=== PATIENT | male | born 1960 | race Caucasian/White ===

== ENCOUNTER 2017-07-05 06:29 | Day surgery (SDC) | payer OTHER ==
--- NOTE | 2017-06-29 18:49 | HP ---
AMENDED REPORT NOW INCLUDES COSIGNER DESIGNATION - ESIGNED BEFORE ADJUSTMENT HISTORY AND PHYSICAL: DATE OF SURGERY: 07/05/17 DATE OF OFFICE VISIT: 06/29/17 SURGEON: Dr. Milner * (DICTATED BY ANDREZ FORD) PROCEDURE: Right hand carpometacarpal arthroplasty. CHIEF COMPLAINT: Right hand and wrist pain. 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 He does a lot of repetitive motions and has a lot of load across his wrist. 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 Wrist x-rays also showed marked ulnar positive variation with ulnar impaction syndrome. The patient is very symptomatic with both of these problems. At his last appointment, we discussed surgical procedures to adjust each of these problems separately and he wanted to pursue with the surgical treatment. PAST MEDICAL HISTORY: Hypertension Hyperlipidemia He denies any history of AK or DVT, PE. PAST SURGICAL HISTORY: Two neck surgeries. MEDICATIONS: 1. Simvastatin. 2. Carvedilol 25 mg. 3. Omeprazole 40 mg. 4. Losartan 100 mg. 5. Fenofibrate 160 mg. ALLERGIES: No known drug allergies. FAMILY MEDICAL HISTORY: He denies any known family history including strokes, AK, DVT, or diabetes. SOCIAL HISTORY: The patient is a current 1 pack per day smoker with a 30-year history. He does occasionally drink alcohol and he denies any use of illicit drugs. REVIEW OF SYSTEMS: General: Negative for fevers, chills, or night sweats. He has not had problems with anesthesia in the past. HEENT: Negative for headache, lightheadedness, or fainting. Cardiothoracic: Negative for hypertension. Negative for chest pain or palpitations. Pulmonary: Negative for shortness of breath, chronic cough, COPD. GI: Negative for nausea, vomiting, diarrhea, or constipation. He denies a history of GERD. : Negative for urinary frequency, urinary urgency, or history of kidney problems. Musculoskeletal: Positive for the current complaint as described in the HPI. Positive for chronic back pain. Neuro: Negative for paresthesias, numbness, history of seizures, or stroke. Endocrine: Negative for diabetes or thyroid problems. Hematologic: Negative for easy bruising, anemia, excessive bleeding, history of DVT or PE. ID: Negative for MRSA, hepatitis C, and HIV. PHYSICAL EXAMINATION VITAL SIGNS: Height 66 inches, weight 225 pounds, pulse 73, blood pressure 148/ 95, respirations 16, BMI 36.3. GENERAL: Francois is a healthy-appearing, well-developed, well-nourished 56-year- old man who appears his stated age, in no apparent distress. HEENT: Normocephalic, atraumatic. NECK: He has a supple neck. No palpable lymph nodes. Thyroid is smooth and nontender. PULMONARY: Lungs clear to auscultation bilaterally with no wheezes, rhonchi, or rales. CARDIO: Regular rate and rhythm. No murmurs, rubs, or gallops appreciated. No pedal edema. ABDOMEN: Soft, nontender. He does have an umbilical hernia. NEUROLOGIC: Alert and oriented x3. Cranial nerves II through XII grossly intact. Sensation is intact to light touch. MUSCULOSKELETAL: Bilateral upper extremities, he has a prominence of the distal ulna on the right, but not on the left. He has hyperextension deformity of the right thumb MP joint, but is not present on the left. He can make a fist. His wrist motion on the right is limited with flexion and extension by pain as compared to the left and his supination is limited. His neurovascular function is intact. Skin is intact. DIAGNOSTIC STUDIES: X-rays previously performed at [facility] discussed within the HPI. IMPRESSION: Carpometacarpal arthritis on the right due to years of work as a brant. He also has ulnar impaction syndrome of the right wrist. PLAN: The patient is scheduled to undergo right hand carpometacarpal arthroplasty on 07/05/[address] Milner. He will return to the office in 10 to 14 days postop for followup and suture removal. A prescription for Chelsea was sent to his pharmacy today, on 06/29/17 and was e-scribed today. I-STOP was verified prior to prescription transmission. ANDREZ FORD [id number]/[facility] #: [id number] [place]
[~2017-07-05 06:29] MED LIST: Buffered Lidocaine 0.9% SYRIN* 5 ML/SYR SYRINGE INTRADERM ONE; DiMENhydriNATE IV* 50 MG/ML VIAL IV PUSH PRN; Famotidine IV* 10 MG/ML 2 ML (20 mg) IV ONE; Famotidine IV* 10 MG/ML 2 ML (20 mg) ONE; Morphine INJ* 2 MG/ML 1 ML CARPUJECT IV PRN; PROCHLORPERAZINE INJ 5 MG/ML 2 ML VIAL IV PRN; Scopolamine 1.5 mg* PATCH TRANSDERM PRN; fentaNYL* 50 MCG/ML 2 ML VIAL (100 MCG VIAL) IV PRN; oxyCODONE/Acetamin 5/325 MG* TAB PO PRN
[2017-07-05] MEDS ORDERED: ceFAZolin 2 GM PREMIX (*) 2 GM/50 ML BAG IVPB ONE (06:38)
[2017-07-05] MEDS ORDERED: Midazolam* 1 MG/ML 5 ML VIAL (5 MG) ONE (07:20)
[2017-07-05] MEDS ORDERED: fentaNYL* 50 MCG/ML 2 ML VIAL (100 MCG VIAL) ONE ×2 (07:20→07:48)
[2017-07-05] MEDS ORDERED: KETAMINE HCL* 50 MG/ML 10 ML VIAL ONE (07:20)
[2017-07-05] MEDS ORDERED: Bupivacaine 0.5% SDV PF* 30 ML VIAL ONE (07:26)
[2017-07-05] MEDS ORDERED: Ondansetron INJ* 2 MG/ML VIAL ONE (07:49)
[2017-07-05] MEDS ORDERED: Dexamethasone IV* 4 MG/ML 1 ML (4 MG) ONE (07:49)
[2017-07-05] MEDS ORDERED: Lidocaine 2% PF * 5 ML VIAL ONE (07:49)
[2017-07-05] MEDS ORDERED: Ketorolac INJ* 30 MG/ML 1 ML VIAL ONE (07:49)
[2017-07-05] MEDS ORDERED: Propofol* 10 MG/ML 20 ML BTL IV PUSH ONE (07:49)
[2017-07-05] MEDS ORDERED: Metoprolol Tartrate IV* 1 MG/ML 5 ML VIAL ONE (07:56)
[2017-07-05 09:17] VITALS: BP 133/76
--- NOTE | 2017-07-06 01:08 | OP ---
DATE OF OPERATION: 07/05/17 [facility] DATE OF : 64 SURGEON: Ai Milner MD SPRAYER OPERATOR: ANDREZ Ghosh ANESTHESIOLOGIST: Jason Fountain MD ANESTHESIA: General. PRE-OP DIAGNOSIS: Right thumb carpometacarpal arthritis. POST-OP DIAGNOSIS: Right thumb carpometacarpal arthritis. OPERATIVE PROCEDURE: Right thumb carpometacarpal arthroplasty. ESTIMATED BLOOD LOSS: Zero. TOURNIQUET TIME: About 30 minutes. INDICATION FOR PROCEDURE: Francois is a 56-year-old man who has pain at the base of his right thumb from heavy overuse and work over many years. He has severe degenerative arthritis at the CMC joint as seen on x-ray. He presents for right thumb CMC arthroplasty. DESCRIPTION OF PROCEDURE: The patient was brought to the operating room, was given a general anesthetic and placed in the supine position on the operating table with the tourniquet around his right upper arm. The skin of his right hand and forearm was prepped and draped in the usual sterile fashion. The hand and forearm were exsanguinated and tourniquet elevated to 250 mmHg. An S- shaped incision was made centered over the thumb CMC joint. We dissected bluntly through the subcutaneous tissue down to the CMC joint capsule. The APL and EPB tendons were retracted by the rn neurosurgical, Gauri Mckinley. Branches of the radial sensory nerve were also located and retracted and then the branch of the radial artery was carefully dissected off of the CMC joint capsule and retracted by the rn neurosurgical whose participation was essential for safe completion of the case. The CMC joint capsule was then incised with a distally based U-shaped flap, which was subperiosteally dissected off the trapezium. The trapezium was then removed in its entirety. The wound was irrigated and the CMC joint capsule was secured to the FCR tendon in the base of the wound with a 4-0 nylon suture. The remainder of the capsule was closed with 4-0 nylon suture. This gave excellent position of the thumb metacarpal in abduction and the MP joint was in very good position. The wound was again irrigated and the skin edges were reapproximated with 4-0 nylon suture. The wound was dressed with Xeroform, 4x4, Webril, and a thumb spica splint with the MP joint flexed. The patient tolerated the procedure well and was brought to the recovery room in good condition. [id number]/[facility] #: [id number] [place]ASSIDY
[2017-07-08] MEDS ORDERED: Scopolamine PATCH Remove* 1 NOTE MISC PATCH OFF ONE (05:43)
== END 2017-07-05 09:16 | disposition home or self-care (01) ==
LOC: OREAST 06:29
PROVIDERS: ATTEND Orthopaedic Surgery
DX: M18.31 Unilateral post-traumatic osteoarthritis of first carpometacarpal joint, right hand (principal); M21.831 Other specified acquired deformities of right forearm; I10 Essential (primary) hypertension; E78.5 Hyperlipidemia, unspecified; F17.210 Nicotine dependence, cigarettes, uncomplicated
CPT/HCPCS: 88304; 88311; A9270-GY; J0690; J1100; J1885; J2250; J2405; J2704; J3010

== ENCOUNTER 2017-08-30 08:05 | Day surgery (SDC) | payer OTHER ==
--- NOTE | 2017-08-24 19:36 | HP ---
PREOPERATIVE HISTORY AND PHYSICAL: DATE OF SURGERY/ADMISSION: 08/30/17 DATE OF OFFICE VISIT/ENCOUNTER: 08/17/17 ATTENDING SURGEON: Ai Milner MD * (DICTATED BY ANDREZ MONTOYA) PROCEDURE: Right wrist ulnar shortening osteotomy. CHIEF COMPLAINT: Right wrist pain. HISTORY OF PRESENT ILLNESS: This is a 56-year-old male. 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 He has a long history of working as a brant and he is right hand dominant. He holds his trowel in a very specific position and with repetitive use, he ended developing pain on both the radial and ulnar aspects of his wrist. He recently underwent a right thumb CMC arthroplasty and has been quite well with that. X-rays in the past showed marked ulnar positive variation with some ulnar impaction syndrome. The patient is interested in pursuing surgical intervention for the ulnar-sided pain at this time and has consented to proceed with a right wrist ulnar shortening osteotomy. PAST MEDICAL HISTORY: 1. Hypertension. 2. Hyperlipidemia. PAST SURGICAL HISTORY: 1. Right thumb CMC arthroplasty. 2. Two neck surgeries. MEDICATIONS: 1. Carvedilol 25 mg b.i.d. 2. Fenofibrate 160 mg daily. 3. Losartan potassium 100 mg daily. 4. Omeprazole 40 mg daily. ALLERGIES: No known drug allergies. FAMILY MEDICAL HISTORY: Unremarkable. 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 He is a current smoker. He smokes a pack per day and has done so for the past 30 years. He denies recreational drug use. He does drink alcohol on occasion. REVIEW OF SYSTEMS: Negative for fevers, chills, or night sweats. No known anesthesia problems in the past. HEENT: Negative for headache, lightheadedness , or syncopal episodes. Integumentary: Negative for abrasions, lesions, or open wounds. Cardiothoracic: Positive for hypertension. Negative for chest pain , palpitations, or edema. Pulmonary: Negative for shortness of breath with exertion, chronic cough, COPD. GI: Negative for nausea, vomiting, diarrhea, constipation, or GERD. : Negative for nocturia, urinary frequency, urgency, history of UTIs, or kidney problems. Musculoskeletal: Positive for current complaint. Negative for chronic or intermittent back pain or history of fractures. Neurological: Negative for paresthesias, numbness, history of seizure, stroke, or epilepsy. Endocrine: Negative for diabetes or thyroid issues. Hematologic: Negative for easy bruising, anemia, excessive bleeding, or history of DVT. Infectious Disease: Negative for history of MRSA, hepatitis C, or HIV. PHYSICAL EXAMINATION GENERAL: Well-developed, well-nourished 56-year-old male in no acute distress. VITAL SIGNS: Height 5 feet 6 inches, weight 225 pounds, pulse rate 68, blood pressure 142/98. HEENT: Normocephalic, atraumatic. Pupils are equal, round, and reactive to light and accommodation. Extraocular movements are intact. Throat is clear. NECK: Supple. No palpable lymph nodes. PULMONARY: Lungs are clear to auscultation bilaterally. No wheezes, rales, or rhonchi. CARDIOVASCULAR: Regular rate and rhythm. S1, S2. No murmurs, rubs, or gallops. No edema. ABDOMEN: Positive bowel sounds, soft, nontender. NEUROLOGICAL: Alert and oriented x3. Cranial nerves II through XII are intact. Sensation is intact to light touch. PERIPHERAL VASCULAR: 2+ radial and ulnar pulses. Negative Miguel test. MUSCULOSKELETAL: On exam of his right wrist, he has a prominence at the distal ulnar on the right. He has some limitations in flexion and extension of the wrist compared to the left wrist. Pain with some ulnar deviation. Neurovascular function is intact. IMAGING STUDIES: Of the right wrist showed a marked ulnar positive variance with ulnar impaction syndrome. IMPRESSION: Right wrist ulnar impaction syndrome. PLAN: The patient is scheduled to undergo a right wrist ulnar shortening osteotomy with Dr. Milner on 08/30/17. He was prescribed Percocet for postoperative management. He will return to the office in 10 to 14 days postop for followup and suture removal. ANDREZ MONTOYA [id number]/[facility] #: [id number] [facility]ALTH SYSTEMRobyn
[~2017-08-30 08:05] MED LIST changes: -DiMENhydriNATE IV* 50 MG/ML VIAL IV PUSH PRN; -Famotidine IV* 10 MG/ML 2 ML (20 mg) IV ONE; -Famotidine IV* 10 MG/ML 2 ML (20 mg) ONE; +Famotidine TAB* 20 MG PO ONE; -Morphine INJ* 2 MG/ML 1 ML CARPUJECT IV PRN; -PROCHLORPERAZINE INJ 5 MG/ML 2 ML VIAL IV PRN; -Scopolamine 1.5 mg* PATCH TRANSDERM PRN; +celeCOXIB CAP* 200 MG PO ONE; -fentaNYL* 50 MCG/ML 2 ML VIAL (100 MCG VIAL) IV PRN; -oxyCODONE/Acetamin 5/325 MG* TAB PO PRN
[2017-08-30] MEDS ORDERED: celeCOXIB CAP* 100 MG ONE (08:23)
[2017-08-30] MEDS ORDERED: ceFAZolin 2 GM PREMIX (*) 2 GM/50 ML BAG IVPB ONE (08:24)
[2017-08-30] MEDS ORDERED: Buffered Lidocaine 0.9% SYRIN* 5 ML/SYR SYRINGE ONE (08:24)
[2017-08-30] MEDS ORDERED: Famotidine IV* 10 MG/ML 2 ML (20 mg) ONE (08:24)
[2017-08-30] MEDS ORDERED: Famotidine TAB* 20 MG ONE (08:25)
[2017-08-30] MEDS ORDERED: Bupivacaine 0.5% SDV PF* 10-30ML VIAL ONE (09:35)
[2017-08-30] MEDS ORDERED: Bupivacaine 0.25% SDV* 30 ML ONE (09:35)
[2017-08-30] MEDS ORDERED: Lidocaine 2% PF * 5 ML VIAL ONE (09:48)
[2017-08-30] MEDS ORDERED: Propofol* 10 MG/ML 20 ML BTL IV PUSH ONE (09:48)
[2017-08-30] MEDS ORDERED: fentaNYL* 50 MCG/ML 2 ML VIAL (100 MCG VIAL) ONE ×2 (09:48→11:21)
[2017-08-30] MEDS ORDERED: Ketorolac INJ* 30 MG/ML 1 ML VIAL ONE (09:48)
[2017-08-30] MEDS ORDERED: diPHENhydraMINE IV* 50 MG/ML 1 ml VIAL (BENADRYL) IV PRN (10:18)
[2017-08-30] MEDS ORDERED: Naloxone* 0.4 MG/ML 1 ML VIAL IV PRN (10:18)
[2017-08-30] MEDS ORDERED: fentaNYL* 50 MCG/ML 2 ML VIAL (100 MCG VIAL) IV PRN (10:18)
[2017-08-30] MEDS ORDERED: oxyCODONE/Acetamin 5/325 MG* TAB PO PRN (10:18)
[2017-08-30] MEDS ORDERED: Ondansetron INJ* 2 MG/ML VIAL IV PRN (10:18)
[2017-08-30] MEDS ORDERED: HYDROmorphone INJ* 1 MG/ML CARPUJECT SYRINGE IV PRN (10:18)
[2017-08-30] MEDS ORDERED: Ondansetron INJ* 2 MG/ML VIAL ONE (11:31)
[2017-08-30] MEDS ORDERED: HYDROcodone/ACETAMIN 5-325 MG* 1 TAB ONE (11:45)
[2017-08-30 11:50] VITALS: BP 145/82
--- NOTE | 2017-08-30 14:50 | RAD ---
CPT II Codes: 6045F INDICATION: Wrist fracture for reduction. Fluoroscopic services were provided for referring physician. 1 minute and 24 seconds of fluoroscopy time was used. 4 spot images demonstrates a plate and screw fixating the ulna. IMPRESSION: Fluoroscopic services provided for referring physician.
--- NOTE | 2017-09-06 01:32 | OP ---
DATE OF OPERATION: 08/30/17 [facility] DATE OF : 64 SURGEON: Dr. Milner RUBBER MIXER: ANDREZ Ghosh ANESTHESIOLOGIST: Gokul Henriquez MD ANESTHESIA: General. PRE-OP DIAGNOSIS: Ulnar impaction syndrome on the right. POST-OP DIAGNOSIS: Ulnar impaction syndrome on the right. PROCEDURE: Right ulnar shortening osteotomy. ESTIMATED BLOOD LOSS: Zero. TOURNIQUET TIME: About 45 minutes. INDICATIONS FOR PROCEDURE: Francois is a 56-year-old man, who has ulnar-sided wrist pain. This is a work-related injury. He has ulnar impaction syndrome, presents for ulnar shortening osteotomy. DESCRIPTION OF PROCEDURE: The patient was brought to the operating room, was given a general anesthetic and placed in the supine position on the operating room table with a tourniquet around his right upper arm. Skin of his right upper extremity was prepped and draped in the usual sterile fashion. The hand and forearm were exsanguinated and the tourniquet elevated to 250 mmHg. A longitudinal incision was made on the ulnar aspect of the wrist and we dissected sharply down to the ulna between the ECU and FCU muscles. Periosteum was divided and then the plate was secured to the dorsal aspect of the ulnar with 1 distal and 3 proximal screws, the distal screw was placed in the slotted hole on the distal portion. We then secured the 2 K-wires and then placed the cutting guide for 5 mm cut. The second cut was made and the 5 mm bone fragment was removed. The screw in the slotted hole was loosened with the compression device and a K-wire through the distal fragment. The osteotomy fragments were compressed and then the distal screw was tightened. The hole was drilled through the appropriate drill guide across the osteotomy site and measured for an 18 mm screw. The screw was placed and then the remaining screw holes filled. The position of the hardware and osteotomy fragment was checked on the C -arm in the AP and lateral views and found to be satisfactory. The fascia was closed with 2-0 Polysorb suture, the subcutaneous tissue closed with 2-0 Polysorb, and the skin with skin reymundo. The wound was dressed with Xeroform, 4x4, Webril, and volar splint. The patient tolerated the procedure well and was brought to the recovery room in good condition. [id number]/[facility] #: [id number] [place]
== END 2017-08-30 12:19 | disposition home or self-care (01) ==
LOC: OREAST 08:05
PROVIDERS: ATTEND Orthopaedic Surgery
DX: M24.831 Other specific joint derangements of right wrist, not elsewhere classified (principal); I10 Essential (primary) hypertension; E78.5 Hyperlipidemia, unspecified; F17.210 Nicotine dependence, cigarettes, uncomplicated; E11.9 Type 2 diabetes mellitus without complications; K21.9 Gastro-esophageal reflux disease without esophagitis; M19.90 Unspecified osteoarthritis, unspecified site
CPT/HCPCS: 76000; 88304; 88311; A9270-GY; C1713; C1776; J0690; J1885; J2405; J2704; J3010